=== PATIENT | female | born 1995 | race Two or more races ===

== ENCOUNTER → 2022-10-30 | Emergency (ER) | payer OTHER ==
[~2022-10-30] VITALS: Ht 172.7 cm; Wt 68.9 kg
[~2022-10-30] MED LIST: CT SWABBABLE VALVE TRANS SET 1 EA INFUS.SET MC ONE; IOHEXOL-300 100 ML VIAL IV ONE; IV NS 0.9% 250 ML IV ONE; KETOROLAC TROMETHAMINE 15 MG/ML VIAL ONE; KETOROLAC TROMETHAMINE INJ 30 MG/ML VIAL IV ONE; MORPHINE SULFATE INJ 2 MG/ML DISP.SYRIN IV ONE; MORPHINE SULFATE INJ 4 MG/ML DISP.SYRIN ONE; NABU-141 PO
--- NOTE | 2022-10-30 21:55 | NUR ---
MAMADOU COLLECTED AND SENT TO LAB
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
--- NOTE | 2022-10-30 22:00 | NUR ---
20G IV STARTED LAC. BLOOD SENT TO LAB
[2022-10-30 22:42] LABS: BASOPHILS % (AUTO) 0.4 % (0.0-2.0); EOSINOPHILS % (AUTO) 3.7 % (0.0-6.0); HEMATOCRIT 42 % (33-45); HEMOGLOBIN 13.9 g/dL (11.5-14.8); LYMPHOCYTES # (AUTO) 2.5 K/uL (0.8-4.8); LYMPHOCYTES % (AUTO) 30.7 % (20.0-44.0); MEAN CORPUSCULAR HGB CONC 33 g/dl (31.0-36.0); MEAN CORPUSCULAR VOLUME 90 fL (82-100); MONOCYTES # (AUTO) 0.7 K/uL (0.1-1.30); MONOCYTES % (AUTO) 8.8 % (2.0-12.0); NEUTROPHILS # (AUTO) 4.5 K/uL (1.8-8.9); NEUTROPHILS % (AUTO) 56.4 % (43.0-81.0); PLATELET COUNT (AUTO) 303 K/uL (150-450); RED BLOOD CELL COUNT(AUTO) 4.61 MIL/uL (4.0-5.2); WHITE BLOOD COUNT (AUTO) 8.1 K/uL (4.3-11.0)
[2022-10-30 22:50] LABS: CALCIUM, SERUM 9.3 mg/dL (8.5-10.1); CREATININE 0.7 mg/dL (0.6-1.3); POTASSIUM 4.1 mmol/L (3.5-5.1)
--- NOTE | 2022-10-30 23:20 | NUR ---
PT TRANSPORTED TO CT [facility]IA [facility]
--- NOTE | 2022-10-31 00:07 | NUR ---
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
--- NOTE | 2022-10-31 01:31 | NUR ---
Patient discharged to home in stable condition. Written and verbal after care instructions given. Patient verbalizes understanding of instruction.
[2022-10-31 01:32] VITALS: BP 124/96
== END | disposition home or self-care (01) ==
LOC: ER 21:08
DX: M54.2 Cervicalgia (principal); R10.84 Generalized abdominal pain; Z79.899 Other long term (current) drug therapy; V89.2XXA Person injured in unspecified motor-vehicle accident, traffic, initial encounter; Y93.89 Activity, other specified; Y92.89 Other specified places as the place of occurrence of the external cause; Y99.8 Other external cause status
CPT/HCPCS: 99285; 72125; 96374; 96375; 73030; 74177; 85025; 80048; 84703; 36415; 84702; J2270; J7050; Q9967; J1885